=== PATIENT | male | born 1985 ===

== ENCOUNTER 2017-04-13 21:38 | Emergency (ER) | payer OTHER ==
[2017-04-13 21:49] VITALS: TEMP 98.9; BMI 25.2
--- NOTE | 2017-04-13 22:39 | ED PDOC ---
Arrival/HPI - General Chief Complaint: Shortness Of Breath Time Seen by Provider: 04/13/17 22:21 Historian: Patient - History of Present Illness Narrative History of Present Illness (Text): 04/13/17 22:28 Martin Leach is a 31 year old male who presents to the emergency department complaining of episode chest discomfort. Patient reports he was at home home he began to feel discomfort in his chest along with shortness of breath, dizziness, and shaking. Patient states he does not currently have chest pain or SOB.Pt. is a student.Patient denies any headache, fever, cough, nausea, vomiting, diarrhea, diaphoresis, jaw pain, back pain, lower extremity pain/ swelling. Time/Duration: Prior to Arrival Symptom Onset: Sudden Symptom Course: Unchanged Quality: Other (chest discomfort) Modifying Factors (Text): None Context: Home Associated Symptoms (Text): shortness of breath, dizziness, and shaking Past Medical History - Provider Review Nursing Documentation Reviewed: Yes - Infectious Disease Hx of Infectious Diseases: None - Psychiatric Hx Psychophysiologic Disorder: No Hx Substance Use: No - Anesthesia Hx Anesthesia: No Hx Anesthesia Reactions: No Hx Malignant Hyperthermia: No Family/Social History - Physician Review Nursing Documentation Reviewed: Yes Family/Social History: Unknown Family HX Smoking Status: Current Some Days Smoker Hx Alcohol Use: No Hx Substance Use: No Allergies/Home Meds Allergies/Adverse Reactions: Allergies No Known Allergies Allergy (Verified 04/13/17 21:48) Home Medications: Home Meds Medication Instructions Recorded Confirmed No Known Home Med 04/14/17 04/14/17 Review of Systems - Review of Systems Constitutional: Other (shakiness ). absent: Fevers ENT: Normal. absent: Rhinorrhea Respiratory: SOB Cardiovascular: Chest Pain (discomfort) Gastrointestinal: absent: Abdominal Pain, Diarrhea Genitourinary Male: Normal. absent: Dysuria Musculoskeletal: Normal. absent: Back Pain, Neck Pain Skin: Normal Neurological: Dizziness. absent: Headache Endocrine: Normal. absent: Diaphoresis Hemo/Lymphatic: Normal Psychiatric: Normal Physical Exam Vital Signs Reviewed: Yes Vital Signs Temp Pulse Resp BP Pulse Ox 04/14/17 02:23 88 18 99 04/14/17 01:31 100 H 18 131/88 98 04/14/17 00:00 70 16 100 04/13/17 22:30 98.9 F 83 16 144/89 98 04/13/17 21:50 16 98 04/13/17 21:42 98.9 F 104 H 20 144/94 H 99 Temperature: Afebrile Blood Pressure: Hypertensive Pulse: Tachycardic Respiratory Rate: Normal Appearance: Positive for: Well-Appearing, Non-Toxic, Comfortable Pain Distress: None Mental Status: Positive for: Alert and Oriented X 3 - Systems Exam Head: Present: Atraumatic, Normocephalic Pupils: Present: PERRL Extroacular Muscles: Present: EOMI Conjunctiva: Present: Normal Mouth: Present: Moist Mucous Membranes Neck: Present: Normal Range of Motion Respiratory/Chest: Present: Clear to Auscultation, Good Air Exchange. No: Respiratory Distress, Accessory Muscle Use Cardiovascular: Present: Regular Rate and Rhythm, Normal S1, S2. No: Murmurs Abdomen: Present: Normal Bowel Sounds. No: Tenderness, Distention, Peritoneal Signs Upper Extremity: Present: Normal Inspection. No: Cyanosis, Edema Lower Extremity: Present: Normal Inspection, NORMAL PULSES, Cyanosis, Normal ROM , Neurovascularly Intact. No: Edema, CALF TENDERNESS, Tim's Sign, Tenderness , Swelling Neurological: Present: GCS=15, CN II-XII Intact, Speech Normal, Motor Func Grossly Intact, Normal Sensory Function Skin: Present: Warm, Dry, Normal Color. No: Rashes Psychiatric: Present: Alert, Oriented x 3, Normal Insight, Normal Concentration Medical Decision Making ED Course and Treatment: 04/13/17 22:28 Impression: 31 year old male with chest discomfort. Plan: -- EKG -- Chest X-ray -- Labs -- Reassess and disposition EKG: ED Physician ordered, reviewed, and independently interpreted the EKG. Time Interpreted : 22:30 Rate : 87 BPM Rhythm : NSR Interpretation : Normal intervals. No acute changes. 04/14/17 00:19 D-Dimer: 0.54, will order CTA chest. 04/14/17 02:05 Reviewed radiology, Chest X-ray shows no active disease. CTA Chest shows: 1. Evaluation for pulmonary embolism is limited by suboptimal bolus timing and motion. No pulmonary embolism seen. 2. 3 mm right upper lobe pulmonary nodule. Ayanna society guidelines do not apply patient's less than 35 years of age and followup is recommended on clinical basis. 04/14/17 02:10 On reevaluation the patient feels better and is in no acute distress. I have discussed the results and plan with the patient, who expresses understanding. Patient given the opportunity to ask question, all questions were answered and there is agreement with the plan to discharge the patient home. Patient is stable for discharge. Patient was instructed to follow up with physician/clinic in 1-2 days or return if symptoms persist/worsen or new concerning symptoms arise. - Lab Interpretations Lab Results: 04/13/17 22:52 04/13/17 22:52 Lab Results 04/13/17 22:52: PT 10.6, INR 0.98, APTT 26.6, D-Dimer, Quantitative 0.54 H 04/13/17 22:52: WBC 9.1, RBC 4.92, Hgb 15.5, Hct 44.3, MCV 90.0, MCH 31.5, MCHC 35.0, RDW 12.4, Plt Count 239, MPV 10.2 04/13/17 22:52: Sodium 137, Potassium 4.1, Chloride 99, Carbon Dioxide 23, Anion Gap 19, BUN 15, Creatinine 0.8, Est GFR ( Amer) > 60, Est GFR (Non- Af Amer) > 60, Random Glucose 92, Calcium 10.2, Total Bilirubin 1.1, AST 39, ALT 69 H, Alkaline Phosphatase 83, Lactate Dehydrogenase 533, Total Creatine Kinase 175, Troponin I < 0.01, Total Protein 8.2, Albumin 5.2 H, Globulin 2.9, Albumin/Globulin Ratio 1.8 I have reviewed the lab results: Yes - RAD Interpretation Narrative RAD Interpretations (Text): CTA Chest shows: Pulmonary arteries: Evaluation for pulmonary embolism is limited by suboptimal bolus timing and motion. No pulmonary embolism seen. Aorta: No acute findings. No thoracic aortic aneurysm. Lungs: 3 mm right upper lobe pulmonary nodule. No acute pulmonary opacity. Pleural space: No significant pleural effusion. No pneumothorax. Heart: No cardiomegaly. No significant pericardial effusion. Mediastinum: There is a small hiatal hernia. Bones/joints: Mild scoliosis. No acute osseous abnormality. Soft tissues: Unremarkable. Lymph nodes: No adenopathy. Liver: The liver is diffusely decreased in density, compatible with hepatic steatosis. IMPRESSION: 1. Evaluation for pulmonary embolism is limited by suboptimal bolus timing and motion. No pulmonary embolism seen. 2. 3 mm right upper lobe pulmonary nodule. Ayanna society guidelines do not apply patient's less than 35 years of age and followup is recommended on clinical basis. Radiology Orders: 04/13/17 22:29 CHEST PORTABLE [RAD] Stat 04/14/17 00:19 ANGIO CHEST PE PROTOCOL [CT] Stat Senior [employer] Systems Engineer: ED Physician, Radiologist - EKG Interpretation Interpreted by ED Physician: Yes Type: 12 lead EKG - Medication Orders Current Medication Orders: Discontinued Medications Sodium Chloride (Sodium Chloride 0.9%) 500 mls @ 500 mls/hr IV .Q1H STA Stop: 04/14/17 01:22 Last Admin: 04/14/17 00:36 Dose: 500 mls/hr Iodixanol (Visipaque 320 Mg/Ml 100 Ml) Confirm Administered Dose 100 ml IV .STK- MED ONE Stop: 04/14/17 00:41 - Scribe Statement The provider has reviewed the documentation as recorded by the tSefaniibe Sharon Munoz training with [place] All medical record entries made by the Scribe were at my direction and personally dictated by me. I have reviewed the chart and agree that the record accurately reflects my personal performance of the history, physical exam, medical decision making, and the department course for this patient. I have also personally directed, reviewed, and agree with the discharge instructions and disposition. Disposition/Present on Arrival - Present on Arrival Any Indicators Present on Arrival: No History of DVT/PE: No History of Uncontrolled Diabetes: No Urinary Catheter: No History of Decub. Ulcer: No History Surgical Site Infection Following: None - Disposition Have Diagnosis and Disposition been Completed?: Yes Diagnosis: Chest pain Disposition: HOME/ ROUTINE Disposition Time: 02:10 Patient Plan: Discharge Condition: STABLE Discharge Instructions (ExitCare): Chest Pain (ED) Additional Instructions: Follow up with your doctor this week/Follow up on CT scan of chest re: incidental finding of small pulmonary nodule/any recurrent symptoms to return to the emergency room Referrals: Merrill Roldan MD [Staff Provider] - Follow up with primary
[2017-04-13 23:04] LABS: HEMOGLOBIN 15.5 gm/dL (14.0-18.0); MEAN CORPUSCULAR HEMOGLOBIN 31.5 pg (25.0-35.0); MEAN PLATELET VOLUME 10.2 fl (7.0-11.0); RBC 4.92 10^6/uL (3.5-6.1); RED CELL DISTRIBUTION WIDTH 12.4 % (11.5-14.5); WHITE BLOOD COUNT 9.1 10^3/ul (4.5-11.0)
[2017-04-13 23:16] LABS: INR 0.98 (0.93-1.08); PARTIAL THROMBOPLASTIN TIME 26.6 Seconds (23.7-30.8); PROTHROMBIN TIME 10.6 Seconds (9.9-11.8)
[2017-04-13 23:29] LABS: D DIMER 0.54 mg/L FEU (0-0.50)
[2017-04-13 23:30] LABS: TROPONIN I < 0.01 ng/mL
[2017-04-14 00:06] LABS: ALB/GLOB RATIO 1.8 (1.1-1.8); ALBUMIN 5.2 g/dL (3.0-4.8); ALT/SGPT 69 U/L (7-56); AST/SGOT 39 U/L (15-59); BLOOD UREA NITROGEN 15 mg/dL (7-21); CALCIUM 10.2 mg/dL (8.4-10.5); GFR AFRICAN-AMERICAN > 60; GFR NON-AFRICAN AMERICAN > 60
[2017-04-14] MEDS ORDERED: Sodium Chloride 0.9% 500 ML IV STA (00:23)
[2017-04-14] MEDS ORDERED: Iodixanol 320 MG/ML 100 ML BOTTLE IV ONE (00:40)
[2017-04-14 01:32] VITALS: BP 131/88; RESP 18
[2017-04-14 02:24] VITALS: PULSE 88; O2SAT 99
--- NOTE | 2017-04-14 07:23 | CT ---
PROCEDURE: CT Chest with contrast (Pulmonary Angiogram) HISTORY: sob COMPARISON: None available. TECHNIQUE: Axial computed tomography images were obtained of the chest in the pulmonary arterial phase of enhancement. Coronal and sagittal reformatted images were created and reviewed. Intravenous contrast dose: 100 mL Visipaque 320 Radiation dose: Total exam DLP = 418.91 mGy-cm. This CT exam was performed using one or more of the following dose reduction techniques: Automated exposure control, adjustment of the mA and/or kV according to patient size, and/or use of iterative reconstruction technique. FINDINGS: PULMONARY ARTERIES: Evaluation grossly limited due to suboptimal timing of scan relative to contrast bolus. No large central pulmonary embolus. Cannot exclude segmental and subsegmental pulmonary arterial embolism. AORTA: No acute findings. No thoracic aortic aneurysm. LUNGS: No pulmonary infiltrate. Incidental 3 mm subpleural nodule right upper lobe. No followup required. No other pulmonary mass. PLEURAL SPACES: Unremarkable. No effusion or pneuomothorax. HEART: Normal heart size. Small hiatal hernia noted. LYMPH NODES: No lymphadenopathy. BONES, CHEST WALL: No fracture. Mild thoracic dextroscoliosis. OTHER FINDINGS: Bilateral gynecomastia. IMPRESSION: Suboptimal evaluation for detection of pulmonary embolism. No large central or lobar pulmonary embolism identified. Cannot exclude segmental/subsegmental pulmonary arterial embolism on the basis of this limited examination. Additional minor findings as above. Preliminary interpretation of this examination was reported by [facility] at 1:49 a.m. on 04/14/2017. There is concurrence of this report with the preliminary interpretation.
--- NOTE | 2017-04-14 07:35 | RAD ---
HISTORY: pain COMPARISON: No prior. FINDINGS: LUNGS: No active pulmonary disease. PLEURA: No significant pleural effusion identified, no pneumothorax apparent. CARDIOVASCULAR: Normal. OSSEOUS STRUCTURES: No significant abnormalities. VISUALIZED UPPER ABDOMEN: Normal. OTHER FINDINGS: None. IMPRESSION: No active disease.
--- NOTE | 2017-04-14 10:50 | CARD ---
APPROVED REPORT EKG Measurement Heart [id number] <Conclusion> Normal sinus rhythm Normal ECG
== END 2017-04-14 02:24 | disposition home or self-care (01) ==
LOC: ED 21:38
DX: R07.9 Chest pain, unspecified (principal)
CPT/HCPCS: 71010; 71275; 80053; 82550; 83615; 84484; 85027; 85378; 85610; 85730; 93005; 99284; J7040; Q9967